=== PATIENT | male | born 1935 | race Caucasian/White ===

== ENCOUNTER 2018-06-18 17:09 | Emergency (ER) | payer MEDICARE, BC ==
[~2018-06-18] VITALS: Ht 182.9 cm; Wt 81.6 kg
[2018-06-18] MEDS ORDERED: METO-358 PO (17:28)
[2018-06-18] MEDS ORDERED: APIX5TAB PO (17:28)
[2018-06-18] MEDS ORDERED: SYNTHROID (17:28)
[2018-06-18] MEDS ORDERED: SERT25TA PO (17:28)
--- NOTE | 2018-06-18 17:42 | NUR ---
Pt was brought in by family s/p fall this afternoon. Pt has episodes of being unstable on feet and staring off in space prior the fall. S/P pacemaker placement three weeks ago d/t [place] Pt awake, alert, oriented x3. No sob noted. No s/sx of distress noted. Resp even and unlabored. Wound to L elbow, tenderness to L arm, L knee and L chest d/t palpation. Call light within reach. Family at bedside. Will cont to monitor. Addendum: 06/18/18 at 1748 by GRECIA Denies head and neck injury. Denies LOC.
[2018-06-18] MEDS ORDERED: IV NORMAL SALINE 1000 ML BAG IV ONE (18:00)
[2018-06-18 18:18] LABS: BASOPHILS # (AUTO) 0.1 K/uL (0.0-8.0); BASOPHILS % (AUTO) 0.6 % (0.0-2.0); EOSINOPHILS # (AUTO) 0.3 K/uL (0.0-0.7); EOSINOPHILS % (AUTO) 3.7 % (0.0-7.0); HEMOGLOBIN 12.6 g/dL (12.5-16.3); LYMPHOCYTES # (AUTO) 1.4 K/uL (20.0-40.0); LYMPHOCYTES % (AUTO) 17.3 % (20.5-51.5); MEAN CORPUSCULAR HEMOGLOBIN 33.1 uug (23.8-33.4); MEAN CORPUSCULAR HGB CONC 34 g/dL (32.5-36.3); MEAN CORPUSCULAR VOLUME 97.1 fL (73.0-96.2); MONOCYTES # (AUTO) 0.9 K/uL (2.0-10.0); MONOCYTES % (AUTO) 10.8 % (0.0-11.0); NEUTROPHILS # (AUTO) 5.5 K/uL (1.8-8.9); NEUTROPHILS % (AUTO) 67.6 % (38.5-71.5); PLATELET COUNT (AUTO) 168 K/uL (152-348); RED BLOOD CELL COUNT(AUTO) 3.81 MIL/uL (4.06-5.63); WHITE BLOOD COUNT (AUTO) 8.2 K/uL (3.6-10.2)
[2018-06-18 18:26] LABS: CARBON DIOXIDE 25 mmol/L (21-32); CHLORIDE 106 mmol/L (98-107); CREATININE 1.1 mg/dL (0.6-1.3); GLUCOSE 124 mg/dL (74-106); POTASSIUM 4.2 mmol/L (3.5-5.1); UREA NITROGEN, BLOOD 27 mg/dL (7-18)
--- NOTE | 2018-06-18 18:28 | NUR ---
Pt was taken to CT scan.
[2018-06-18 18:32] LABS: ALANINE AMINOTRANSFERASE 30 U/L (16-63); ALKALINE PHOSPHATASE 104 U/L (50-136); ASPARTATE AMINOTRANSFERASE 19 U/L (15-37); BILIRUBIN,DIRECT 0.1 mg/dL (0.0-0.2); BILIRUBIN,TOTAL 0.5 mg/dL (0.2-1.0); TOTAL PROTEIN, SERUM 6.6 g/dL (6.4-8.2)
[2018-06-18 18:39] LABS: *BILIRUBIN,URIN NEGATIVE (NEGATIVE); *BLOOD, URINE NEGATIVE (NEGATIVE); *CLARITY,URINE CLEAR (CLEAR); *COLOR,URINE YELLOW (YELLOW); *KETONES,URINE NEGATIVE (NEGATIVE); *PROTEIN,URINE NEGATIVE (NEGATIVE); *UROBILINOGEN,URINE 0.2 E.U./dl (NORMAL); LEUKOCYTE ESTERASE ,URINE NEGATIVE (NEGATIVE); NITRITE, URINE NEGATIVE (NEGATIVE); PH,URINE 5.5 (5.0-8.0); UGLUCOSE NEGATIVE (NEGATIVE)
[2018-06-18 18:44] LABS: MUCUS,URINE MANY /LPF (0-FEW); WBC,URINE 0-3 /HPF (0-3)
[2018-06-18] MEDS ORDERED: ACETAMINOPHEN 325 MG TABLET PO ONE (19:00)
--- NOTE | 2018-06-18 19:00 | NUR ---
Cleansed and irrigated wound with NS. Repositioned skin tear back to its original position. Applied with steri strips and covered with dry dressing. Pt maria m well. Made MD aware that patient wants something for pain. Will cont to monitor.
[2018-06-18] MEDS ORDERED: ACETAMINOPHEN 325 MG TABLET ONE (19:17)
--- NOTE | 2018-06-18 19:30 | NUR ---
ASSUMED CARE OF PATIENT AT THIS TIME. PATIENT IN STRETCHER RESTING IN NO DISTRESS. COMPLAINING OF PAIN IN LEFT CHEST S/P FALL. DENIES ANY SHORTNESS OF BREATH, OR COUGHING UP MUCOUS. SKIN WARM AND DRY PULSE OX 99 PERCENT
--- NOTE | 2018-06-18 19:43 | NUR ---
Patient discharged to home in stable conditon. Written and verbal after care instructions given. Patient verbalizes understanding of instructions. IV DC'D
[2018-06-18 19:46] VITALS: BP 160/82
== END 2018-06-18 19:46 | disposition home or self-care (01) ==
LOC: ER 17:15
DX: R55 Syncope and collapse (principal); I10 Essential (primary) hypertension; I48.91 Unspecified atrial fibrillation; E03.9 Hypothyroidism, unspecified; Z95.0 Presence of cardiac pacemaker
CPT/HCPCS: 36415; 70450; 71101; 80048; 80076; 81001; 84443; 84484; 85025; 85730; 93005; 96360; 99285; A4663; J7030; 70030-TC